=== PATIENT | male | born 2000 ===

== ENCOUNTER 2024-02-29 17:44 | Emergency (ER) | payer SELFPAY ==
[2024-02-29 17:54] VITALS: BP 156/99
[2024-02-29 17:55] VITALS: PULSE 87; RESP 16; O2SAT 99
[2024-02-29 18:00] VITALS: BP 139/82; BP 156/99; PULSE 82; PULSE 83; RESP 16; RESP 18; TEMP 36.9; O2SAT 100; BMI 23.9
[2024-02-29 18:15] VITALS: BP 142/84; PULSE 92; RESP 16; O2SAT 100
[2024-02-29 18:30] VITALS: BP 134/78; PULSE 86; RESP 24; O2SAT 99
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
[2024-02-29 20:34] VITALS: BP 124/63; PULSE 65; RESP 18; O2SAT 96
== END 2024-02-29 20:39 | disposition home or self-care (01) ==
PROVIDERS: Emergency Provider Student in an Organized Health Care Education/Training Program; PCP Family Medicine
DX: S29.019A Strain of muscle and tendon of unspecified wall of thorax, initial encounter (principal); M25.562 Pain in left knee; V89.2XXA Person injured in unspecified motor-vehicle accident, traffic, initial encounter
CPT/HCPCS: 72070; 73562; 99281; 99283